=== PATIENT | female | born 2000 | race Caucasian/White ===

== ENCOUNTER → 2019-12-05 13:32 | Observation (INO) ==
[2019-12-05 10:56] LABS: Amphetamine Screen,Urine Negative ng/mL (Cutoff=1000); Barbiturate Screen,Urine Negative ng/mL (Cutoff=200); Benzodiazepines Screen,Urine Negative ng/mL (Cutoff=200); Cannabinoid Screen,Urine Negative ng/mL (Cutoff = 50); Cocaine Screen,Urine Negative ng/mL (Cutoff= 300); Opiate Screen,Urine Negative ng/mL (Cutoff=300); Phencyclidine Screen,Urine Negative ng/mL (Cutoff=25)
== END | disposition home or self-care (01) ==
LOC: 1NENULAB
PROVIDERS: ADMIT Advanced Practice Midwife; ATTEND Advanced Practice Midwife

== ENCOUNTER → 2019-12-26 11:10 | Observation (INO) ==
[2019-12-26 09:59] VITALS: BP 118/73
== END | disposition home or self-care (01) ==
LOC: 1NENULAB
PROVIDERS: ADMIT Registered Nurse; ATTEND Registered Nurse

== ENCOUNTER 2020-01-23 08:00 | Inpatient (IN) ==
[2020-01-23] MEDS ORDERED: Metoclopramide 10 MG/2 ML VIAL IVP PRN (08:15)
[2020-01-23] MEDS ORDERED: Penicillin G Potassium 5,000,000 UNIT in 0.9 % Sodium Chloride Mini Bag 100 ML IVPB ONE (08:15)
[2020-01-23] MEDS ORDERED: Naloxone 0.4 MG/ML INJ IVP PRN (08:15)
[2020-01-23] MEDS ORDERED: Famotidine 20 MG/2 ML VIAL IVP PRN (08:15)
[2020-01-23] MEDS ORDERED: Ondansetron 4 MG/2 ML VIAL IVP PRN (08:15)
[2020-01-23] MEDS ORDERED: *HR* FentaNYL (PF) 100 MCG/2 ML VIAL IVP PRN (08:15)
[2020-01-23] MEDS ORDERED: Lidocaine 1% 20 ML MDV INFILT PRN (08:15)
[2020-01-23] MEDS ORDERED: miSOPROStoL 25 MCG TABLET PO PRN (08:47)
[2020-01-23 08:53] LABS: Basophils % 0.2 %; Eosinophils # 0.1 K/mcL (0.0-0.6); Eosinophils % 0.9 %; Hemoglobin 10.4 g/dL (11.5-15.4); Immature Granulocytes % 1.4 % (0-4); Lymphocytes # 1.9 K/mcL (0.6-4.6); Lymphocytes % 21.9 %; Mean Corpuscular HGB Conc 33.5 g/dL (31.6-35.5); Mean Corpuscular Hemoglobin 30.7 pg (28.0-33.3); Mean Corpuscular Volume 91.4 fL (83.0-100.0); Mean Platelet Volume 11.5 fL (9.4-12.4); Monocytes # 0.6 K/mcL (0.0-1.3); Monocytes % 6.9 %; Neutrophils # 5.8 K/mcL (1.6-8.9); Platelet Count 167 K/mcL (140-400); Red Blood Count 3.39 M/mcL (3.82-4.97); Red Cell Distribution Width 13.2 % (11.5-14.5); Segmented Neutrophils % 68.7 %; White Blood Count 8.4 K/mcL (4.3-11.1)
[2020-01-23] MEDS: Ringers Solution, Lactated 1,000 ML IVC SCH ×2 (08:53→13:34)
[2020-01-23 09:30] LABS: Amphetamine Screen,Urine Negative ng/mL (Cutoff=1000); Barbiturate Screen,Urine Negative ng/mL (Cutoff=200); Benzodiazepines Screen,Urine Negative ng/mL (Cutoff=200); Cannabinoid Screen,Urine Negative ng/mL (Cutoff = 50); Cocaine Screen,Urine Negative ng/mL (Cutoff= 300); Opiate Screen,Urine Negative ng/mL (Cutoff=300); Phencyclidine Screen,Urine Negative ng/mL (Cutoff=25)
[2020-01-23] MEDS: Penicillin G Potassium 2,500,000 UNIT in 0.9 % Sodium Chloride 100 ML IVPB SCH ×2 (13:05→17:40)
[2020-01-23] MEDS ORDERED: Oxytocin 20 units/ LR 1000 mL 20 UNIT/1,000 ML BAG IVC SCH (13:45)
[2020-01-23] MEDS ORDERED: EPHEDrine 50 MG/ML VIAL IVP PRN (17:05)
[2020-01-23] MEDS ORDERED: Epidural Premix (fent/bupiv) 110 ML EP ONE (17:09)
[2020-01-23] MEDS ORDERED: Epidural Premix (fent/bupiv) 110 ML EP SCH (17:15)
[2020-01-24] MEDS ORDERED: Acetaminophen 325 MG TABLET PO PRN (01:44)
[2020-01-24] MEDS ORDERED: Ibuprofen 600 MG TABLET PO PRN (01:44)
[2020-01-24] MEDS ORDERED: Benzocaine/Menthol 56 GM AEROSOL SPRAY TP PRN (01:44)
[2020-01-24] MEDS ORDERED: *HR* HYDROcodone/Acet 5/325 mg TABLET PO PRN (01:44)
[2020-01-24] MEDS ORDERED: Lanolin 7 G OINT...G. TP PRN (01:44)
[2020-01-24] MEDS ORDERED: Oxytocin 20 units/ LR 1000 mL 20 UNIT/1,000 ML BAG IVC SCH (01:44)
[2020-01-24] MEDS ORDERED: Prenatal Vit/FA 1 EACH TABLET PO SCH (09:00)
[2020-01-24 20:59] VITALS: BP 119/73
== END 2020-01-24 11:50 | disposition home or self-care (01) | DRG 806 ==
LOC: 1NENULAB 08:13 → 1NENUOBS 01-24 01:28
PROVIDERS: ADMIT Advanced Practice Midwife; ATTEND Advanced Practice Midwife